=== PATIENT | female | born 1945 | race Caucasian/White ===

== ENCOUNTER 2021-06-13 19:14 | Inpatient (IN) | payer MEDICARE ==
[~2021-06-13] VITALS: Ht 160 cm; Wt 157.1 kg
[2021-06-13 21:06] VITALS: BP 98/47; PULSE 145; TEMP 98.5
--- NOTE | 2021-06-13 21:17 | NUR ---
PT ARRIVED TO MEDICAL FLOOR AT APPROXIMATELY 2030 VIA STRETCHER BY [facility]. EMS AND 3 NURSES HELPED TRANSPORT PT TO BED BY SLIDING BOARD. PT UNABLE TO AMBULATE ON HER OWN. PT A/OX3, POOR HISTORIAN,PLEASANTLY FORGETFUL. 02 2L NC, TACHYCARDIC,TACHYPNEIC, SOFT BP'S, PT VISION IMPAIRED. ASSESMENT COMPLETE.SIGNIFICANT SKIN IMPAIRMENT NOTED AND DOCUMENTED.PUREWICK/BARRIER CREAM PLACED FOR INCONTINENCE. MED REC COMPLETE. PT ORIENTED TO FLOOR AND HOSPITAL POLICY. ALL RELEVANT QUESTIONS/CONCERNS ANSWERED. NURSE WILL CONTINUE TO MONITOR/F.U. BED ALARM ON. CALL LIGHT UNDER PT'S HAND AND ORIENTED TO NURSES BUTTON. DOOR OPEN AND PT VISIBLE FROM HALLWAY.
[2021-06-13] MEDS ORDERED: LIPITOR 40MG TA40 MG PO (21:25)
[2021-06-13] MEDS ORDERED: COREG 6.256.25 MG/TA PO (21:26)
[2021-06-13] MEDS ORDERED: LASIX 40MG TABL40 MG PO (21:27)
[2021-06-13] MEDS ORDERED: PRINIVIL20 MG PO (21:28)
[2021-06-13] MEDS ORDERED: PLAVIX 75MG TAB75 MG PO (21:35)
[2021-06-13] MEDS ORDERED: NITROSTAT0.3 MG SL (21:36)
--- NOTE | 2021-06-13 23:15 | NUR ---
PT HEPARIN DRIP INITIATIED AT THIS TIME AT 23OOUNITS/HR. HEPARIN BOLUS ADMINISTERED. NEXT HEPXA AT 0500.
[2021-06-13 23:19] LABS: PARTIAL THROMBOPLASTIN TIME 46.7 SECONDS (26.0-37.0)
--- NOTE | 2021-06-13 23:55 | NUR ---
PT TRANSPORTED TO OR VIA BED BY OR STAFF AT 2340. DOCTOR SPOKE WITH PT CONCERNING PROCEDURE, PT VERBALIZES UNDERSTANDING, CONSENT SIGNED AND IN PT'S CHART. HEP GTT INFUSING AT 2300U/HR TO LEFT FA IV, ZOSYN INFUSING AT 25ML/HR TO RH IV.
[2021-06-14] VITALS (619 sets, daily range): BP systolic 91–134; BP diastolic 52–75; PULSE 62–141; TEMP 98.2–98.8; O2SAT 82–100
--- NOTE | 2021-06-14 00:57 | NUR ---
THIS NURSE GAVE REPORT TO ICU NURSE SUZANNE AT THIS TIME. THIS NURSE WILL ENSURE PT RECEIVES PERSONAL BELONGINGS FROM THIS FLOOR.
--- NOTE | 2021-06-14 02:42 | NUR ---
ARRIVED ON UNIT WITH HEPARIN AND ZOSYN ON STANDBY. PER CARLA PA HEPARIN AND ZOSYN WAS RESUMED TO WHAT WAS PREVIOUSLY PROGRAMMED IN PUMP AND PER NOV. AT 0242 PER CARLA PA AMIODARONE WAS STARTED FOR RATE CONTROL AFIB.
--- NOTE | 2021-06-14 02:56 | NUR ---
REPORT FOR MISS RAY WAS GIVEN BY [facility] AT 1253 AND MISS RAY ARRIVED FROM OR AT 0112. SHE WAS MOVED FROM OR BED TO ICU BED WITHOUT INCIDENT. MISS RAY APPEARED TO BE IN NO ACUTE DISTRESS OR PAIN. SHE STATED THAT SHE FEELS PRESSURE WHERE THE MALDONADO IS BUT SHE WAS REASURED THAT IT CAN BE NORMAL. SHE WAS ORIENTED TO UNIT AND CALL BELTRAN IN REACH. WILL CONTINUE TO MONITOR
[2021-06-14 04:09] LABS: MEAN CELL VOLUME 83 fl (80.0-100.0); MEAN CORPUSCULAR HGB CONC 30 g/dl (33.0-37.0); MEAN PLATELET VOLUME 11.3 fl (7.4-10.4); PLATELET COUNT 96 K/mm3 (130-400); RED BLOOD COUNT 3.71 M/mm3 (4.10-5.30); REDCELL DISTRIBUTION WIDTH-CV 17.6 % (11.5-14.5)
[2021-06-14 04:14] LABS: HEMATOCRIT 30.6 % (37.0-47.0); HEMOGLOBIN 9.3 g/dl (12.5-16.0); MEAN CORPUSCULAR HEMOGLOBIN 25 pg (27.0-31.0)
[2021-06-14 04:27] LABS: CALCIUM 7.2 mg/dL (8.4-10.2); CREATININE, serum 1.78 mg/dL (0.57-1.11); POTASSIUM 4.2 mmol/L (3.5-4.5)
[2021-06-14 04:43] LABS: BAND 20 % (0-10); LYMPHOCYTE 2 % (20.0-51.0); NEUTROPHILS 75 % (42.0-75.2); PLATELET ESTIMATE DECREASED (NORMAL)
[2021-06-14 04:44] LABS: ANISOCYTOSIS 1+; HYPOCHROMIA 1+; OVALOCYTES 1+; POIKILOCYTOSIS 1+
[2021-06-14 05:55] LABS: COLLECTION METHOD CATHETER
[2021-06-14 06:04] LABS: PH 5 (5-8); SQUAMOUS EPITHELIAL None Seen /hpf; URINE APPEARANCE Turbid; URINE BACTERIA None Seen /hpf; URINE BILIRUBIN Negative (NEGATIVE); URINE BLOOD 3+ (NEGATIVE); URINE COLOR Amber; URINE GLUCOSE Negative (NEGATIVE); URINE KETONE Negative (NEGATIVE); URINE LEUKOCYTE ESTERASE 3+ (NEGATIVE); URINE NITRATE Negative (NEGATIVE); URINE PROTEIN(semi-quant) 2+ (NEGATIVE); URINE RBC >50 /hpf; URINE UROBILINOGEN Negative (NEGATIVE)
--- NOTE | 2021-06-14 10:26 | NUR ---
SW met with patient in room to discuss discharge plan. Patient states she and her , Néstor ([phone]), in [place]. They live in a house with no stairs. Patient states she normally uses a walker with mobility but she also has a cane, a shower chair, and a bedside commode. PCP is Dr. Roblero in [place]. Patient states her MPOA is her daughter, Isadora Jorge and 2nd is son, Brent Jorge. She is on 2L of oxygen at home and [facility] [facility]. She receives her medications maria luisa Kiser in [place]. *D/C plan: pending p/t o/t lorna
--- NOTE | 2021-06-14 10:48 | NUR ---
Initial visit; Patient thanked Food And Beverage Cashier for offering prayer and assuring her that God loves her and is always with her saving her from negativity. Patient wants Food And Beverage Cashier to continue to visit while she is at [place]. Food And Beverage Cashier will do so.
[2021-06-14 11:25] LABS: MAGNESIUM 1.9 mg/dL (1.6-2.6)
[2021-06-14 12:31] LABS: TSH w REFLEX 2.414 uIU/mL (0.350-4.940)
--- NOTE | 2021-06-14 13:30 | NUR ---
1245 TIME OUT COMPLETED WITH DR, MEMBERSHIP SALES ADVISOR, AND RN FOR BEDSIDE LINDSEY WITH [facility]. 1246 START LINDSEY 1303 ONE SHOCK DELIVERED, SUCCESSFULLY CONVERTED TO SR 1320 PT AWAKE, MEMBERSHIP SALES ADVISOR STILL AT BEDSIDE, LEVO STARTED FOR BP 84/57. WILL CONTINUE TO MONITOR.
[2021-06-14] MEDS ORDERED: ASPIRIN 81M81 MG/TA2 PO (16:58)
--- NOTE | 2021-06-14 19:30 | NUR ---
Received report from JESSI Jones, and JESSI Gonzalez.
--- NOTE | 2021-06-14 20:00 | NUR ---
Patient resting quietly in bed. Reports some mild back pain that is relieved by repositioning. All vitals within normal limits. Continues to receive heparin and amiodarone drips. No further needs noted.
--- NOTE | 2021-06-14 22:00 | NUR ---
Patient hesitant to agree to position changes/turns. States she is unable to lay on her side due to chronic back pain, but that she is concerned about developing skin breakdown. This RN reinforced that turns promote circulation and decrease the likelihood of developing skin breakdown. Patient reluctantly agreed but did tolerate well. When later assessed, patient states turning side to side relieved some of her back pain.
[2021-06-15] VITALS (520 sets, daily range): BP systolic 102–121; BP diastolic 50–66; PULSE 73–122; TEMP 98–98.5; O2SAT 76–100
[2021-06-15 05:42] LABS: HEMOGLOBIN 10.1 g/dl (12.5-16.0); MEAN CELL VOLUME 82 fl (80.0-100.0); MEAN CORPUSCULAR HEMOGLOBIN 25 pg (27.0-31.0); MEAN CORPUSCULAR HGB CONC 30 g/dl (33.0-37.0); MEAN PLATELET VOLUME 11.7 fl (7.4-10.4); PLATELET COUNT 103 K/mm3 (130-400); RED BLOOD COUNT 4.04 M/mm3 (4.10-5.30); REDCELL DISTRIBUTION WIDTH-CV 17.8 % (11.5-14.5)
[2021-06-15 05:46] LABS: HEMATOCRIT 33.2 % (37.0-47.0)
[2021-06-15 05:59] LABS: CREATININE, serum 1.63 mg/dL (0.57-1.11); POTASSIUM 4.2 mmol/L (3.5-4.5)
[2021-06-15 06:11] LABS: TROPONIN-I 0.054 ng/mL (0.00-0.033)
--- NOTE | 2021-06-15 07:27 | NUR ---
Report given to JESSI Jones, and JESSI Gonzalez.
--- NOTE | 2021-06-15 09:23 | NUR ---
PT SITTING UP IN BED, STATES IN COMFORTABLE, BUT HELPED TO REPOSTION BACK AND ARMS WITH SOME ASSISTED ROM. DISCUSSED POC FOR THE DAY WITH PT, WILL UPDATE MDS ROUND. IV GTTS AND FLUIDS CHECKED AND VERIFIED, ALL PIVS PATENT. URINE IN MALDONADO BAG CONTINUES TO BE RED, BUT ORAL AND MAXILLOFACIAL SURGERY THAN YESTERDAYS ASSESSMENT. PT HAS NO QUESIONS OR CONVERNS, WILL CONTINUE TO MONITOR.
--- NOTE | 2021-06-15 12:35 | NUR ---
PHYSICAL THERAPIST IN TO SEE PT. PT UP TO CHAIR USING WALKER AND GAIT BELT, 2 PERSON STANDBY. PT TOLERATED WELL WITH SOME ANXIETY. STATES IS VERY COMFORTABLE IN CHAIR, HAPPY TO BE UP. PT'S IN ROOM, CALL LIGHT IN REACH, WILL CONTINUE TO MONITOR.
--- NOTE | 2021-06-15 13:38 | NUR ---
Property Management Bookkeeper was informed patient will transfer to floor; Patient has impaired vision and has a lift chair. P/T is recommeding HHC. Property Management Bookkeeper to discuss hhc with patient D/C Plan: Home with spouse and HHC
--- NOTE | 2021-06-15 16:30 | NUR ---
CALLED REPORT TO JESSI HI. PT SITTING UP IN CHAIR, ALL BELONGINGS GATHERED. SPOUSE IN ROOM.
--- NOTE | 2021-06-15 17:00 | NUR ---
PT TRANSPORTED TO ROOM 349 VIA W/C. JESSI HI MET PT IN ROOM. ASSISTED PT INTO BED, CALL LIGHT WITHIN REACH, VSS. RELINQUISHED CARE AT THIS TIME.
--- NOTE | 2021-06-15 17:22 | NUR ---
PT TO ROOM 349 WITH SLOW TRANSFER WITH 2 NURSES. PT ORIENTED TO ROOM. 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 POSTITIONED FOR COMFORT. AT BEDSIDE. HEPARIN DRIP RUNNING @ 23 UNITS HR.
--- NOTE | 2021-06-15 17:25 | NUR ---
PT HAS MALDONADO CATHETER WITH TEA COLORED URINE IN BAG.
--- NOTE | 2021-06-15 17:25 | NUR ---
IV TO LFA RUNNING @75 MLS HR.
[2021-06-16] VITALS (8 sets, daily range): BP systolic 113–139; BP diastolic 45–68; PULSE 81–125; TEMP 97.7–98.7
--- NOTE | 2021-06-16 07:05 | NUR ---
updated on pt condition.
[2021-06-16 08:07] LABS: INR 1.3 (0.8-3.0); PROTHROMBIN TIME 14.5 SECONDS (9.7-12.8)
[2021-06-16 08:18] LABS: CALCIUM 8.3 mg/dL (8.4-10.2); CREATININE, serum 1.1 mg/dL (0.57-1.11); MAGNESIUM 2.2 mg/dL (1.6-2.6); POTASSIUM 4.2 mmol/L (3.5-4.5)
--- NOTE | 2021-06-16 09:08 | NUR ---
PT SLEEPS IN RECLINER. ATE BREAKFAST. PT REMAINS TACHY WITH RATES 105-130 BPM. NOTIFIED CARDIOLOGY AT SHIFT CHANGE NO NEW ORDERS PER DR HINTON. PT ATE 100 % OF BREAKFAST TRAY. MALDONADO CATHETER TO DD WITH TEA COLORED URINE IN BAG. PT HAS VERY EDEMATOUS BLE AND FEET. PT SITTING UP IN RECLINER. PT HAS BILATERAL CATARACTS AND CANNOT SEE. SET UP HELP WITH FOOD TRAYS PROVIDED BY STAFF.
--- NOTE | 2021-06-16 11:25 | NUR ---
ELIJAH met with the patient and her , Néstor, to review discharge plan and to discuss PT's recommendation of home health. The patient confirms that she plans on returning home with her . She states that she would be interested in home health and would prefer [facility]. She reports that she received services from them in the past and that Néstor is receiving services from them right now too. ELIJAH attempted to contact Laisha at [facility]. ELIJAH left her a voicemail and faxed over the referral. Awaiting screen. *Discharge plan: home with and home health*
--- NOTE | 2021-06-16 21:13 | NUR ---
Patient assessed. Denies pain and discomfort. Peripheral IV to right hand with Heparin drip per orders. Right forearm INT flusehd. Left forearm IV with Zosyn running per orders. Denies SOB and dyspnea. LS CTA in upper, diminished in lower. HRI. Telemetry: A-flutter. Recieved medications per orders. 3+ edema BLE, scaling/flaking to BLE. Voices no questions, needs, or concerns at this time. Resting in recliner with call light within reach.
[2021-06-17 04:53] VITALS: BP 116/54; PULSE 94; TEMP 97.7
--- NOTE | 2021-06-17 05:44 | NUR ---
Patient assisted to bedside commode once this shift. Has medium BM. Assisted to bed afterwards. Indwelling desai catheter patent, with hematuria. Denies pain and discomfort. Breast/abominal/groing folds cleansed, and interdry cloth placed in folds. Continues on Heparin drip per orders. Lab to draw HepXa this morning. Voices no questions, needs, or concerns at this time. Resting in bed with call light within reach.
[2021-06-17 06:38] LABS: BASO % 0.5 % (0.0-2.0); EOS # 0.2 K/mm3 (0.0-0.7); EOS % 2.5 % (0-4.0); GRAN # 5.7 K/mm3 (1.4-6.5); GRAN % 75.3 % (42.2-75.2); LYMPH # 0.9 K/mm3 (1.2-3.4); LYMPH % 11.9 % (20.0-51.0); MEAN CELL VOLUME 84 fl (80.0-100.0); MEAN CORPUSCULAR HGB CONC 29 g/dl (33.0-37.0); MEAN PLATELET VOLUME 11.8 fl (7.4-10.4); MONO # 0.7 K/mm3 (0.1-0.6); MONO % 9.1 % (1.7-9.3); PLATELET COUNT 107 K/mm3 (130-400); RED BLOOD COUNT 3.91 M/mm3 (4.10-5.30); REDCELL DISTRIBUTION WIDTH-CV 17.6 % (11.5-14.5)
[2021-06-17 06:48] LABS: INR 2.6 (0.8-3.0); PROTHROMBIN TIME 28.7 SECONDS (9.7-12.8)
[2021-06-17 06:49] LABS: HEMATOCRIT 32.8 % (37.0-47.0); HEMOGLOBIN 9.4 g/dl (12.5-16.0); MEAN CORPUSCULAR HEMOGLOBIN 24 pg (27.0-31.0)
[2021-06-17 07:02] LABS: CALCIUM 8.4 mg/dL (8.4-10.2); CREATININE, serum 0.98 mg/dL (0.57-1.11); POTASSIUM 4.4 mmol/L (3.5-4.5)
[2021-06-17 07:10] VITALS: BP 120/69; PULSE 39; TEMP 98
--- NOTE | 2021-06-17 07:26 | NUR ---
pt awake in bed, HOB elevated 45-90 degrees, pt does have pain in ROYER Lower Extremity, edema present in both, Left more severe. Breakfast has been ordered per pt request. Will inform primary nurse of pain complaint.
--- NOTE | 2021-06-17 09:11 | NUR ---
Patient awake and alert. Reports feeling a litle anxious or nervous this am. I did discuss ativan with her she thought about it and was agreeable to take a dose. I did speak with Drew in cardiology about EKG & tele, she had already reviewed. They will be in to see patient. Student nurse assisting with cares. Will monitor.
--- NOTE | 2021-06-17 09:48 | NUR ---
Laisha, at [facility], reports that at this time; they are able to accept the patient for services.
[2021-06-17 13:01] VITALS: BP 116/54; PULSE 86; TEMP 97.9
--- NOTE | 2021-06-17 14:12 | NUR ---
Patient sitting up in chair. Spouse at bedside. Good urine output after lasix. Adamson to DD, urine output has cleared. Patient also seems in better spirits and more relaxed after ativan. Will let her rest.
[2021-06-17 15:38] VITALS: BP 112/45; PULSE 63; TEMP 98.2
--- NOTE | 2021-06-17 17:53 | NUR ---
Patient continues to have great urine output. Urine looks clearer. Sediment still present. Adamson to DD. She was up to commode and had a BM this afternoon. Assisted with luis. Spouse at bedside. Patient continues to sit up in chair, awaiting her dinner tray. Will monitor.
--- NOTE | 2021-06-17 18:58 | NUR ---
Patient tolerated dinner. Her spouse remains at bedside. Bedside report to Mariangel
[2021-06-17 19:32] VITALS: BP 122/48; PULSE 66; TEMP 98.4
[2021-06-17 23:46] VITALS: BP 131/52; PULSE 65; TEMP 97.9
[2021-06-18 03:38] VITALS: BP 111/57; PULSE 67; TEMP 98.4
--- NOTE | 2021-06-18 06:21 | NUR ---
pt slept in recliner tonight, on O2 @2L per NC, no SS insulin required this shift, desai patent/secure, draining cloudy, yellow urine 2100 cc out this shift. up to BSC for bm last noc with assist of 2, pt c/o right leg going to sleep/numbness while on commode, states this has been happening, became anxious, nervous that we wouldn't be able to get her up. with encouragement, pt able to stand with assist of 2 using GB and walker, had lg BM.
[2021-06-18 07:12] LABS: INR 3.4 (0.8-3.0); PROTHROMBIN TIME 37.6 SECONDS (9.7-12.8)
[2021-06-18 07:15] LABS: MEAN CELL VOLUME 84 fl (80.0-100.0); MEAN CORPUSCULAR HGB CONC 29 g/dl (33.0-37.0); MEAN PLATELET VOLUME 11.4 fl (7.4-10.4); PLATELET COUNT 129 K/mm3 (130-400); RED BLOOD COUNT 3.99 M/mm3 (4.10-5.30); REDCELL DISTRIBUTION WIDTH-CV 17.5 % (11.5-14.5)
[2021-06-18 07:20] LABS: HEMATOCRIT 33.6 % (37.0-47.0); HEMOGLOBIN 9.7 g/dl (12.5-16.0); MEAN CORPUSCULAR HEMOGLOBIN 24 pg (27.0-31.0)
[2021-06-18 07:36] VITALS: BP 124/54; PULSE 66; TEMP 97.6
[2021-06-18 07:36] LABS: CALCIUM 9.1 mg/dL (8.4-10.2); CREATININE, serum 1.02 mg/dL (0.57-1.11); POTASSIUM 4.2 mmol/L (3.5-4.5)
[2021-06-18 08:03] LABS: ANISOCYTOSIS 1+; HYPOCHROMIA 1+; PLATELET ESTIMATE NORMAL (NORMAL)
[2021-06-18 08:05] LABS: BAND 4 % (0-10); EOSINOPHIL 3 % (0-4); LYMPHOCYTE 18 % (20.0-51.0); NEUTROPHILS 65 % (42.0-75.2)
[2021-06-18 11:59] VITALS: BP 107/73; PULSE 101; TEMP 98.2
[2021-06-18 16:00] VITALS: BP 124/52; PULSE 69; TEMP 98.3
--- NOTE | 2021-06-18 18:42 | NUR ---
Patient doing well throughout the day, has been up to recliner. Encouraged increased activity. Patient up to recliner with x 1-2 assist. Patient denies pain throughout the day. Scaling/flaking to BLE. Redness to BLE. Redness to bilateral inner thighs. Adamson to DD with clear yellow urine present. INT to right hand and right forarm. Antibiotics infusing per orders. Denies needs at this time. Ativan given this AM for anxiety. Will report off to woven wood shade assembler.
[2021-06-18 19:50] VITALS: BP 126/50; PULSE 67; TEMP 98.1
[2021-06-19 00:21] VITALS: BP 124/53; PULSE 64; TEMP 97.9
[2021-06-19 04:38] VITALS: BP 117/50; PULSE 65; TEMP 98.2
--- NOTE | 2021-06-19 07:03 | NUR ---
Report received from JESSI August. Pt. progressing w/ plan of care. Pt. awake, sitting upright in bed. Assessment complete. Pt. denies pain and anxiety at this time. Chair alarm on. Call light and belongings in reach. Pt. reports feeling cold and requesting a warm blanket. Pt. denies further needs at this point.
[2021-06-19 07:39] LABS: MEAN CELL VOLUME 83 fl (80.0-100.0); MEAN CORPUSCULAR HEMOGLOBIN 24 pg (27.0-31.0); MEAN CORPUSCULAR HGB CONC 29 g/dl (33.0-37.0); MEAN PLATELET VOLUME 11.4 fl (7.4-10.4); PLATELET COUNT 166 K/mm3 (130-400); RED BLOOD COUNT 4.15 M/mm3 (4.10-5.30); REDCELL DISTRIBUTION WIDTH-CV 17.5 % (11.5-14.5)
[2021-06-19 07:45] LABS: HEMATOCRIT 34.3 % (37.0-47.0)
[2021-06-19 08:00] VITALS: BP 123/79; PULSE 72; TEMP 98.2
[2021-06-19 08:04] LABS: INR 2.3 (0.8-3.0)
[2021-06-19 08:09] LABS: ANISOCYTOSIS 1+; BAND 5 % (0-10); EOSINOPHIL 3 % (0-4); LYMPHOCYTE 23 % (20.0-51.0); METAMYELOCYTE 1 % (0-0); NEUTROPHILS 61 % (42.0-75.2); PLATELET ESTIMATE NORMAL (NORMAL)
[2021-06-19 08:10] LABS: HYPOCHROMIA 2+
[2021-06-19 08:13] LABS: CALCIUM 9.1 mg/dL (8.4-10.2); CREATININE, serum 1.01 mg/dL (0.57-1.11); MAGNESIUM 1.8 mg/dL (1.6-2.6); POTASSIUM 3.8 mmol/L (3.5-4.5)
--- NOTE | 2021-06-19 11:10 | NUR ---
Pt. progressing w/ plan of care. Pt. was reporting anxiety this AM, PRN lorazepam administered w/ good effect. Pt.'s supportive at bedside. Needs addressed, call light and belongings in reach.
[2021-06-19 11:53] VITALS: BP 127/43; PULSE 69; TEMP 98.8
[2021-06-19] MEDS ORDERED: ANORO IH (15:53)
[2021-06-19] MEDS ORDERED: CORTEF 20MG TAB20 MG PO (15:57)
[2021-06-19] MEDS ORDERED: CORTEF 20MG TAB20 MG (15:57)
[2021-06-19 16:00] VITALS: BP 118/46; PULSE 67; TEMP 98.1
--- NOTE | 2021-06-19 19:06 | NUR ---
Report given to JESSI Back. Pt sitting in chair, awake. Pt. denies needs at this time, chair alarm on, call light and belongings in reach.
[2021-06-19 19:26] VITALS: BP 129/49; PULSE 67; TEMP 98
--- NOTE | 2021-06-19 20:50 | NUR ---
Pt. sitting up in chair at this time. Pt. is A&Ox3, assessment complete. INT to lt. hand patent. Pt. denies pain or other needs, call light within reach.
[2021-06-20] VITALS (13 sets, daily range): BP systolic 115–150; BP diastolic 44–84; PULSE 63–89; TEMP 97.3–98.6
[2021-06-20 07:38] LABS: HEMOGLOBIN 10.6 g/dl (12.5-16.0); MEAN CELL VOLUME 83 fl (80.0-100.0); MEAN CORPUSCULAR HEMOGLOBIN 24 pg (27.0-31.0); MEAN CORPUSCULAR HGB CONC 29 g/dl (33.0-37.0); MEAN PLATELET VOLUME 10.5 fl (7.4-10.4); PLATELET COUNT 185 K/mm3 (130-400); REDCELL DISTRIBUTION WIDTH-CV 17.6 % (11.5-14.5)
[2021-06-20 07:44] LABS: HEMATOCRIT 36.6 % (37.0-47.0)
[2021-06-20 07:57] LABS: CALCIUM 9.3 mg/dL (8.4-10.2); CREATININE, serum 0.98 mg/dL (0.57-1.11); MAGNESIUM 1.8 mg/dL (1.6-2.6); POTASSIUM 3.7 mmol/L (3.5-4.5)
[2021-06-20 09:34] LABS: INR 2.1 (0.8-3.0); PROTHROMBIN TIME 23.1 SECONDS (9.7-12.8)
--- NOTE | 2021-06-20 10:30 | NUR ---
Per Marianne JIMENEZ, hold zosyn at this time, will verify with hospitalist if we are going to continue medications d/t loose stools.
--- NOTE | 2021-06-20 11:50 | NUR ---
Rolando Corona ok to continue zosyn at this time.
--- NOTE | 2021-06-20 12:09 | NUR ---
Patient to laborer by bed.
--- NOTE | 2021-06-20 12:17 | NUR ---
First visit from the insecticide expert. No needs right now.
--- NOTE | 2021-06-20 19:34 | NUR ---
Patient doing well throughout the day. Up to recliner. Denies pain at this time. Spouse at bedside. Adamson maintained to DD with clear shelbi urine present. Patient denies further needs at this time. Will report off to manager night.
--- NOTE | 2021-06-20 20:00 | NUR ---
PATIENT IS ALERT AND ORIENTED X4. PATIENT IS BLIND AND A 1-2 ASSIST WITH WALKER. PATEINT HAS FOLWY WITH CLOUDY AND TEA COLORED OUTPUT. PATIENT HAS PURPLISH AREA TO BACK OF THIGHTS. PATIENT HAS IV TO LEFT HAND. PATIENT ON ADA DIET AND ACHS. PATIENT ON TELE. PATIENT IS DNR. PATIENT DENIES PAIN OR FURTHER NEEDS AT THIS TIME. CALL LIGHT WITHIN REACH. HEAD TO TOE ASSESSMENT COMPLETE.
--- NOTE | 2021-06-21 02:30 | NUR ---
PATIENT COMPLAINING OF PAIN TO RECTUM. SAYS IT FEELS LIKE A LOT OF PRESSURE. BARBARA AGUIRRE NOTIFIED. TYLENOL ORDERED. WILL CONTINUE TO MONITOR. NO FURTHER NEEDS. CALL LIGHT WITHIN REACH.
[2021-06-21 04:25] VITALS: BP 120/91; PULSE 60; TEMP 98
--- NOTE | 2021-06-21 06:37 | NUR ---
PATIENT DID WELL THROUGHOUT NIGHT. STAYED IN CHAIR. UP AND DOWN TO BEDSIDE COMMONDE THROUGHOUT NIGHT. COMPLAINTS OF RECTUM PAIN/PRESSURE. TYLENOL GIVEN PER ORDERS. BARBARA AGUIRRE NOTIFIED. BARRIER CREAM APPLIED BECAUSE PATIENT STATED "IT MAY JUST BE DRY". NO FURTHER NEEDS AT THIS TIME. WILL REPORT TO DAYSHIFT.
[2021-06-21 07:38] VITALS: BP 111/44; PULSE 66; TEMP 98.1
[2021-06-21 08:26] LABS: INR 2.2 (0.8-3.0); PROTHROMBIN TIME 24.9 SECONDS (9.7-12.8)
--- NOTE | 2021-06-21 09:09 | NUR ---
The patient is to discharge back home with her today, 06/21, with home health services for detention/PT/OT from [facility]. ELIJAH presented and read the IM form outloud to the patient and her . The patient's verbalized understanding and signed the form. SW provided him with a copy. ELIJAH attempted to notify Laisha at [facility]. ELIJAH left her a voicemail and will fax over discharge orders, once completed. No additional needs at this time.
[2021-06-21 10:50] VITALS: BP 108/48; PULSE 64; TEMP 98.4
[2021-06-21] MEDS ORDERED: COUMADIN 3MG3 MG/TAB PO (11:17)
[2021-06-21] MEDS ORDERED: PACERONE400 MG PO (11:20)
[2021-06-21] MEDS ORDERED: TOPROL XL 25MG25 MG PO (11:21)
[2021-06-21] MEDS ORDERED: DIGITEK0.125 MG PO (11:21)
[2021-06-21] MEDS ORDERED: LASIX 40MG TABL40 MG PO (11:23)
[2021-06-21] MEDS ORDERED: K-DUR 10 MEQ T10 MEQ PO (11:24)
[2021-06-21 12:42] LABS: CALCIUM 9.2 mg/dL (8.4-10.2); MAGNESIUM 2.1 mg/dL (1.6-2.3); POTASSIUM 3.8 mmol/L (3.4-5.0)
--- NOTE | 2021-06-21 15:00 | NUR ---
Patient doing well throughout the day. Patient has been up to recliner. Has been voiding well since desai removal today. Has voided multiple times. Incontinent of urine x1 this afternoon, pericare provided. Patient discharging home with spouse. Transportation arranged with ELIJAH, patient discharging with [facility]. INT discontinued, catheter tip intact. Patient denies furhter needs at this time.
--- NOTE | 2021-06-22 08:46 | NUR ---
*late entry, 06/21/21* The patient's RN notified ELIJAH that the patient and her do not have transport home. The RN reports that the patient and her are stating that a doctor told them that the hospital would arrange transport home. ELIJAH and the patient's RN met with the patient and her , Néstor. Néstor reports that his family brought him up to the hospital. He states that they do not have a vehicle that the patient can get in to and the patient cannot get in to any of their family member's vehicles either. SW inquired about how they get to doctors appointments. Néstor reports that the patient has not been to see her doctor since August. SW discussed the options of private paying for ambulance transport and pursuing SNF to help get the patient stronger. The patient and then suggested a taxi service where the van is handicap accessible. The patient and her report that they have used this sort of transortation service before, but the phone number for the agency is at home. The then stated that he is familiar with [employer] and they might have a handicap accessible van. SW contacted the taxi agency. The local delivery driver states that he does not have a handicap accessible van, but referred SW to Parvin at [employer]: [phone]. ELIJAH contacted Parvin. Parvin reports that she reich have a handicap accessible van and can take card or shearer. The trip to the patient's home in [place] is $60. ELIJAH informed the patient and Néstor. Néstor reports that they are able to pay for the trip. Transportation was scheduled at 1445. ELIJAH informed the patient, her , and the patient's RN of the transport time. No additional needs at this time.
== END 2021-06-21 15:00 | disposition home or self-care (01) | DRG 853 ==
LOC: MEDICAL 19:14 → ICU 20:36 → SURG 06-15 17:00
PROVIDERS: Internal Medicine; Physician Assistant; Student in an Organized Health Care Education/Training Program; ADMIT Internal Medicine
PROC: 0T768DZ Dilation of Right Ureter with Intraluminal Device, Via Natural or Artificial Opening Endoscopic (ICD-10-PCS; principal; 2021-06-14)
PROC: BT1D1ZZ Fluoroscopy of Right Kidney, Ureter and Bladder using Low Osmolar Contrast (ICD-10-PCS; 2021-06-14)
PROC: 5A2204Z Restoration of Cardiac Rhythm, Single (ICD-10-PCS; 2021-06-14)
PROC: 5A2204Z Restoration of Cardiac Rhythm, Single (ICD-10-PCS; 2021-06-20)
DX: A41.9 Sepsis, unspecified organism (principal); I50.33 Acute on chronic diastolic (congestive) heart failure; N17.9 Acute kidney failure, unspecified; N20.2 Calculus of kidney with calculus of ureter; I48.92 Unspecified atrial flutter; J44.9 Chronic obstructive pulmonary disease, unspecified; Z87.891 Personal history of nicotine dependence; Z79.82 Long term (current) use of aspirin; I48.91 Unspecified atrial fibrillation; F41.9 Anxiety disorder, unspecified; Z66 Do not resuscitate; R73.9 Hyperglycemia, unspecified; I11.0 Hypertensive heart disease with heart failure; R31.9 Hematuria, unspecified; L89.891 Pressure ulcer of other site, stage 1; I25.10 Atherosclerotic heart disease of native coronary artery without angina pectoris; B96.20 Unspecified Escherichia coli [E. coli] as the cause of diseases classified elsewhere
CPT/HCPCS: 99223-AI; 99231-AI; 99232-AI; 99233-AI; 99239; C1769; C2617; J0282; J0330; J1160; J1644; J1815; J1940; J2250; J2370; J2405; J2543; J2704; J3010; J3475; J7030; J7060; Q9967